=== PATIENT | male | born 1980 | race Caucasian/White ===

== ENCOUNTER 2022-07-25 08:37 | Outpatient (CLI) | payer MEDICAID, SELFPAY ==
--- NOTE | 2022-07-25 09:55 | W.ANESCHARGE ---
Anesthesia Charges Start Date/Time Anesthesia Start Date: 07/25/22 Anesthesia Start Time: 09:18 Stop Date/Time Anesthesia Stop Date: 07/25/22 Anesthesia Stop Time: 09:55
== END 2022-07-25 08:38 | disposition home or self-care (01) ==
LOC: OP CLINIC 08:38
PROVIDERS: Visit Provider Internal Medicine Gastroenterology
DX: R13.10 Dysphagia, unspecified (principal); K22.2 Esophageal obstruction; K22.70 Barrett's esophagus without dysplasia; K22.89 Other specified disease of esophagus
CPT/HCPCS: 00731; 43239; 43248; 88305; J2704

== ENCOUNTER 2023-09-29 13:07 | Outpatient (CLI) | payer MEDICAID, SELFPAY ==
--- NOTE | 2023-09-29 14:10 | W.ANESCHARGE ---
Anesthesia Charges Start Date/Time Anesthesia Start Date: 09/29/23 Anesthesia Start Time: 13:58 Stop Date/Time Anesthesia Stop Date: 09/29/23 Anesthesia Stop Time: 14:25
--- NOTE | 2023-09-29 14:29 | W.ANESCHARGE ---
Anesthesia Charges Start Date/Time Anesthesia Start Date: 09/29/23 Anesthesia Start Time: 13:58 Stop Date/Time Anesthesia Stop Date: 09/29/23 Anesthesia Stop Time: 14:25
== END 2023-09-29 13:08 | disposition home or self-care (01) ==
LOC: OP CLINIC 13:10
PROVIDERS: Visit Provider Internal Medicine Gastroenterology
DX: R13.10 Dysphagia, unspecified (principal); K22.70 Barrett's esophagus without dysplasia; K22.89 Other specified disease of esophagus; K22.2 Esophageal obstruction
CPT/HCPCS: 00731; 43239; 43248; 88305; J2704

== ENCOUNTER 2023-11-03 09:04 | Outpatient (CLI) | payer MEDICAID, SELFPAY ==
--- NOTE | 2023-11-03 09:46 | W.ANESCHARGE ---
Anesthesia Charges Start Date/Time Anesthesia Start Date: 11/03/23 Anesthesia Start Time: 09:42 Stop Date/Time Anesthesia Stop Date: 11/03/23 Anesthesia Stop Time: 10:09
--- NOTE | 2023-11-03 10:11 | W.ANESCHARGE ---
Anesthesia Charges Start Date/Time Anesthesia Start Date: 11/03/23 Anesthesia Start Time: 09:42 Stop Date/Time Anesthesia Stop Date: 11/03/23 Anesthesia Stop Time: 10:09
== END 2023-11-03 09:05 | disposition home or self-care (01) ==
LOC: OP CLINIC 09:04
PROVIDERS: Visit Provider Internal Medicine Gastroenterology
DX: R13.10 Dysphagia, unspecified (principal); K92.89 Other specified diseases of the digestive system; K22.89 Other specified disease of esophagus; K22.2 Esophageal obstruction
CPT/HCPCS: 00731; 43202; 43226; 88305; J2704

== ENCOUNTER 2023-12-01 13:02 | Outpatient (CLI) | payer MEDICAID, SELFPAY ==
--- NOTE | 2023-12-01 14:36 | W.ANESCHARGE ---
Anesthesia Charges Start Date/Time Anesthesia Start Date: 12/01/23 Anesthesia Start Time: 14:07 Stop Date/Time Anesthesia Stop Date: 12/01/23 Anesthesia Stop Time: 14:33
--- NOTE | 2023-12-01 14:55 | W.ANESCHARGE ---
Anesthesia Charges Start Date/Time Anesthesia Start Date: 12/01/23 Anesthesia Start Time: 14:07 Stop Date/Time Anesthesia Stop Date: 12/01/23 Anesthesia Stop Time: 14:33
== END 2023-12-01 13:03 | disposition home or self-care (01) ==
LOC: OP CLINIC 13:03
PROVIDERS: Visit Provider Internal Medicine Gastroenterology
DX: R13.10 Dysphagia, unspecified (principal); K22.2 Esophageal obstruction; K20.0 Eosinophilic esophagitis; K22.89 Other specified disease of esophagus
CPT/HCPCS: 00731; 43239; 43248; 88305; J2704; J3490

== ENCOUNTER 2023-12-29 14:04 | Outpatient (CLI) | payer MEDICAID, SELFPAY ==
--- NOTE | 2023-12-29 15:10 | W.ANESCHARGE ---
Anesthesia Charges Start Date/Time Anesthesia Start Date: 12/29/23 Anesthesia Start Time: 14:50 Stop Date/Time Anesthesia Stop Date: 12/29/23 Anesthesia Stop Time: 15:09
--- NOTE | 2023-12-29 15:11 | W.ANESCHARGE ---
Anesthesia Charges Start Date/Time Anesthesia Start Date: 12/29/23 Anesthesia Start Time: 14:50 Stop Date/Time Anesthesia Stop Date: 12/29/23 Anesthesia Stop Time: 15:09
== END 2023-12-29 14:05 | disposition home or self-care (01) ==
LOC: OP CLINIC 14:04
PROVIDERS: Visit Provider Internal Medicine Gastroenterology
DX: R13.10 Dysphagia, unspecified (principal); K22.89 Other specified disease of esophagus; K22.2 Esophageal obstruction
CPT/HCPCS: 00731; 43248; J2704; J3010